=== PATIENT | male | born 2000 | race African-American/Black ===

== ENCOUNTER → 2022-12-15 | Outpatient (CLI) | payer OTHER ==
[~2022-12-15] MED LIST: LIDOCAINE VISC 2% SOLN 15 ML UDC ONE
[2022-12-15 18:30] LABS: BASOPHILS % 0.8 % (0.0-1.0); EOSINOPHILS # (AUTO) 0.1 (0.0-0.4); EOSINOPHILS % 1.4 % (0.0-6.0); HEMATOCRIT 48.7 % (38.2-49.6); HEMOGLOBIN 16.6 g/dL (14.0-18.0); LYMPHOCYTES # (AUTO) 2.1 (1.0-3.2); LYMPHOCYTES % 42.8 % (18.0-39.1); MEAN CORPUSCULAR HEMOGLOBIN 32.2 pg (28-32); MEAN CORPUSCULAR HGB CONC 34.1 g/dL (31-35); MEAN CORPUSCULAR VOLUME 94.4 fL (81-99); MONOCYTES # (AUTO) 0.4 (0.2-0.8); MONOCYTES % 7.2 % (4.4-11.3); NEUTROPHILS # (AUTO) 2.3 (2.1-6.9); NEUTROPHILS % 47.6 % (38.7-80.0); PLATELET COUNT 196 x10e3/uL (140-360); RED BLOOD COUNT 5.16 x10e6/uL (4.3-5.7); RED CELL DISTRIBUTION WIDTH 11.8 % (11.7-14.4)
[2022-12-15 18:46] LABS: ALBUMIN 4.6 g/dL (3.5-5.0); ALBUMIN/GLOBULIN RATIO 1.3 (0.8-2.0); ANION GAP 16.1 mmol/L (8-16); CREATININE, SERUM 0.99 mg/dL (0.72-1.25); POTASSIUM 4.1 mmol/L (3.5-5.1)
== END ==
LOC: WCC 12:20
PROVIDERS: ATTEND Family Medicine Adult Medicine
DX: S81.802A Unspecified open wound, left lower leg, initial encounter (principal)
CPT/HCPCS: 36415; 80053; 83036; 84134; 85025

== ENCOUNTER → 2022-12-22 | Outpatient (CLI) | payer OTHER | LOC: WCC 08:00 | PROVIDERS: ATTEND Family Medicine Adult Medicine | DX: S81.802A Unspecified open wound, left lower leg, initial encounter (principal) ==

== ENCOUNTER → 2022-12-29 | Outpatient (CLI) | payer OTHER | LOC: WCC 08:38 | PROVIDERS: ATTEND Family Medicine Adult Medicine | DX: S81.802A Unspecified open wound, left lower leg, initial encounter (principal) ==

== ENCOUNTER → 2023-01-05 | Outpatient (CLI) | payer OTHER | LOC: WCC 11:22 | PROVIDERS: ATTEND Family Medicine Adult Medicine | DX: S81.802A Unspecified open wound, left lower leg, initial encounter (principal) ==

== ENCOUNTER → 2023-01-12 | Outpatient (CLI) | payer OTHER | LOC: WCC 09:59 | PROVIDERS: ATTEND Family Medicine Adult Medicine | DX: S81.802A Unspecified open wound, left lower leg, initial encounter (principal); T24.232A Burn of second degree of left lower leg, initial encounter ==

== ENCOUNTER → 2023-01-19 | Outpatient (CLI) | payer OTHER | LOC: WCC 08:00 | PROVIDERS: ATTEND Family Medicine Adult Medicine | DX: S81.802A Unspecified open wound, left lower leg, initial encounter (principal); T24.232A Burn of second degree of left lower leg, initial encounter; S80.822A Blister (nonthermal), left lower leg, initial encounter ==

== ENCOUNTER → 2023-01-26 | Outpatient (CLI) | payer OTHER | LOC: WCC 10:02 | PROVIDERS: ATTEND Family Medicine Adult Medicine | DX: S81.802A Unspecified open wound, left lower leg, initial encounter (principal); T24.23 Burn of second degree of lower leg; S80.822A Blister (nonthermal), left lower leg, initial encounter ==